=== PATIENT | female | born 1995 | race Caucasian/White ===

== ENCOUNTER 2025-04-28 21:12 | Emergency (ER) | payer MEDICAID ==
[2025-04-28 21:18] VITALS: TEMP 98.2
--- NOTE | 2025-04-28 21:29 | ERPHSYRPT ---
- History of Present Illness Time Seen by Provider: 04/28/25 21:18 Historian: patient Patient Subjective Stated Complaint: . Triage Nursing Assessment: . Physician History: 30-year-old female with history of no medications and denies past medical history of health issues who presents with 2 to 3 days of dry cough along with left sided chest pain. She reports that sharp pain in the left side of her chest that is worse with coughing. She reports mild shortness of breath. No nausea or vomiting. Denies exertional symptoms.No lower extremity swelling. Denies tobacco use Aspirin Treatment Today: no aspirin today Allergies/Adverse Reactions: hydrocodone Allergy (Intermediate, Verified 04/28/25 21:24) Itching Home Medications: No Reportable Medications [No Reported Medications] 04/28/25 [History] Hx Tetanus, Diphtheria Vaccination/Date Given: No Hx Influenza Vaccination/Date Given: No Hx Pneumococcal Vaccination/Date Given: No Immunizations Up to Date: No Travel Risk - International Travel Have you traveled outside of the country in past 3 weeks: No - Emerging Infectious Disease Are you exhibiting symptoms associated with any current EIDs: No - Review of Systems Constitutional: No Fever, No Chills Eyes: No Symptoms Ears, Nose, & Throat: No Symptoms Respiratory: Cough, No Dyspnea Cardiac: No Chest Pain, No Edema, No Syncope Abdominal/Gastrointestinal: No Abdominal Pain, No Nausea, No Vomiting, No Diarrhea Genitourinary Symptoms: No Dysuria Musculoskeletal: No Back Pain, No Neck Pain Skin: No Rash Neurological: No Dizziness, No Focal Weakness, No Sensory Changes Psychological: No Symptoms Endocrine: No Symptoms All Other Systems: Reviewed and Negative - Past Medical History Pertinent Past Medical History: No Neurological History: No Pertinent History ENT History: No Pertinent History Cardiac History: No Pertinent History Respiratory History: Asthma Endocrine Medical History: No Pertinent History Musculoskeletal History: No Pertinent History GI Medical History: No Pertinent History History: No Pertinent History Psycho-Social History: No Pertinent History Female Reproductive Disorders: Uterine Cancer - Past Surgical History Past Surgical History: Yes Neuro Surgical History: No Pertinent History Cardiac: No Pertinent History Respiratory: No Pertinent History Gastrointestinal: Appendectomy Genitourinary: No Pertinent History Musculoskeletal: No Pertinent History Female Surgical History: Hysterectomy - Female History Hx Last Menstrual Period: N/A - HYSTERECTOMY Hx Now: No - Social History Smoking Status: Never smoker Exposure to second hand smoke: No Drug Use: none - Social Determinants of Health Will the patient participate in the screening: Yes Do you worry about a steady place to live?: No Do you have any problems with any of the following?: No known problems In the past 12 months,have you had to go without utilities?: No Transportation Issues: No Has anyone in your support network made you feel unsafe?: No Have you or anyone in your house had to go w/o enough food: No - Nursing Vital Signs Nursing Vital Signs: Initial Vital Signs Temperature 98.2 F 04/28/25 21:13 Pulse Rate 99 H 04/28/25 21:13 Respiratory Rate 18 04/28/25 21:13 O2 Sat by Pulse Oximetry 99 04/28/25 21:13 Pain Scale Pain Intensity 9 - Physical Exam General Appearance: no apparent distress Neck Exam: normal inspection, non-tender, supple, full range of motion Respiratory Exam: normal breath sounds, chest tenderness, lungs clear, No respiratory distress Cardiovascular Exam: regular rate/rhythm, normal heart sounds, normal peripheral pulses Gastrointestinal/Abdomen Exam: soft, No tenderness Neurologic Exam: alert, oriented x 3 Skin Exam: normal color, dry SpO2 Interpretation: normal SpO2: 99 Ordered Tests: Active Orders 24 hr Category Date Time Status EKG-ER Only STAT Care 04/28/25 21:21 Active CHEST 2 VIEWS (PA AND LAT) Stat Exams 04/28/25 21:37 Taken CBC W DIFF Stat Lab 04/28/25 21:21 Ordered CMP Stat Lab 04/28/25 21:21 Ordered D-DIMER QUANTITATIVE Stat Lab 04/28/25 21:21 Ordered TROPONIN Q4H Lab 04/28/25 21:30 Ordered TROPONIN Q4H Lab 04/29/25 01:30 Ordered TROPONIN Q4H Lab 04/29/25 05:30 Ordered Medication Summary Discontinued Medications Generic Name Dose Route Start Last Admin Trade Name Freq PRN Reason Stop Dose Admin Ketorolac Tromethamine 15 mg 04/28/25 21:23 04/28/25 21:34 Ketorolac Tromethamine 30 Mg/Ml Inj IV 04/28/25 21:24 Not Given STAT ONE - Progress Progress Note: 04/28/25 21:28 EKG was reviewed as sinus rhythm rate of [address] or T wave abnormality. Attempt was made to start an IV and the patient at that point refused to have any lab test done. She is aware that life-threatening illnesses such as pulmonary embolism and a heart attack cannot be excluded.She is agreeable to an x-ray. 04/28/25 21:38 Reviewed the two-view chest x-ray I do not see a pneumothoraxOr effusion or the cause of the patient's symptoms. We Back and discussed with patient as she refused to have any blood work done. She is aware that we cannot exclude a heart attack pulmonary embolism infection or other severe and threatening causes for her symptoms. In discussion with her but she states that she does not want any other testing and would like to leave. She states she understands risk and benefits. She will sign out AGAINST MEDICAL ADVICE. - Departure Departure Disposition: AMA Clinical Impression: Chest pain Condition: Fair Critical Care Time: No Instructions: Chest Pain (DC) Additional Instructions: As discussed we cannot exclude serious causes for your chest pain as youDid not want to have lab work or further testing done at this time. We do not see the cause of your symptoms on EKG and chest x-ray. You should return if you change your mind about having workup
[2025-04-28] MEDS: TORAdol 30 mg Injection IV ONE (21:34)
[2025-04-28 21:57] VITALS: BP 116/67; PULSE 90; RESP 18; O2SAT 98
--- NOTE | 2025-04-29 07:43 | XRAY ---
Indication: Chest pain. Comparison: None PA/lateral chest hyperinflated and clear. Heart and mediastinal structures within normal limits. Bony thorax intact with mild double curvature scoliosis and minimal pectus excavatum deformity. Impression: Nonacute hyperinflated chest with chronic bony findings.
== END 2025-04-28 21:55 | disposition left against medical advice (07) ==
LOC: ED 21:12
DX: R07.9 Chest pain, unspecified (principal); R05.1 Acute cough